=== PATIENT | male | born 1945 | race Caucasian/White ===

== ENCOUNTER 2021-09-23 08:05 | Outpatient (CLI) | payer MEDICARE ==
[2021-09-23 09:44] LABS: Hemoglobin 14.7 g/dL (13.5-17.5); Mean Corpuscular HGB CONC 32.7 g/dL (32.0-36.0); Mean Corpuscular Hemoglobin 29.8 pg (27.0-33.0); Mean Corpuscular Volume 90.9 fl (81.2-95.1); Mean Platelet Volume 9.7 fl (7.4-10.4); Platelet Count 182 10x3/uL (150-450); RBC Distribution Width 12.7 % (11.5-14.5); Red Blood Cell (RBC) Count 4.94 10x6/uL (4.32-5.72); White Blood Cell (WBC) Count 8.8 10x3/uL (3.5-10.5)
[2021-09-23 10:05] LABS: Anion Gap 13 mmol/L (10-20); BUN (Urea Nitrogen) 20 mg/dL (8.4-25.7); Calc. Creatinine Clearance 0 mL/min (70-130); Calcium 9.5 mg/dL (7.8-10.44); Carbon Dioxide 26 mmol/L (23-31); Chloride 107 mmol/L (98-107); Glucose 92 mg/dL (83-110); Potassium 4.9 mmol/L (3.5-5.1); Sodium 141 mmol/L (136-145)
[2021-09-23 10:11] LABS: PTT 26.2 sec (22.0-33.0); Prothrombin Time 10.5 sec (9.5-12.1)
== END 2021-09-23 08:06 | disposition home or self-care (01) ==
LOC: LABBT 08:05
PROVIDERS: ATTEND Urology
DX: Z01.812 Encounter for preprocedural laboratory examination (principal); Z20.822 Contact with and (suspected) exposure to COVID-19
CPT/HCPCS: 80048; 85027; 85610; 85730; 87086; U0003; U0005

== ENCOUNTER 2021-09-28 09:41 | Day surgery (SDC) | payer MEDICARE ==
[2021-09-24 15:27] VITALS: BMI 24.1
[2021-09-28] MEDS ORDERED: Iopamidol 30 ML ONE (13:07)
[2021-09-28] MEDS ORDERED: Sodium Chloride 0.9% 100 ML ONE (13:18)
[2021-09-28] MEDS ORDERED: fentaNYL Citrate/PF 100 MCG/2 ML SYRINGE ONE (13:18)
[2021-09-28] MEDS ORDERED: CEFAZOLIN 2 GM VIAL ONE (13:18)
[2021-09-28] MEDS ORDERED: PROPOFOL 200 MG/20 ML VIAL ONE (13:29)
[2021-09-28] MEDS ORDERED: Lidocaine 1% PF 5 ML VIAL ONE (13:29)
[2021-09-28] MEDS ORDERED: Ondansetron PF 4 MG/2 ML Vial ONE (13:29)
== END 2021-09-28 16:54 | disposition home or self-care (01) ==
LOC: SDC 09:41
PROVIDERS: ATTEND Urology
PROC: 0TCB8ZZ Extirpation of Matter from Bladder, Via Natural or Artificial Opening Endoscopic (ICD-10-PCS; principal; 2021-09-28)
PROC: BT14ZZZ Fluoroscopy of Kidneys, Ureters and Bladder (ICD-10-PCS; 2021-09-28)
DX: N21.0 Calculus in bladder (principal); I10 Essential (primary) hypertension; Z85.51 Personal history of malignant neoplasm of bladder; Z79.82 Long term (current) use of aspirin; Z79.899 Other long term (current) drug therapy
CPT/HCPCS: 74420; 82365; 88300; J0690; J2405; J2704; J3490; Q9967

== ENCOUNTER 2022-02-04 09:05 | Outpatient (CLI) | payer MEDICARE ==
[2022-02-04 10:33] LABS: Mean Corpuscular HGB CONC 33.4 g/dL (32.0-36.0); Mean Corpuscular Hemoglobin 30.4 pg (27.0-33.0); Mean Corpuscular Volume 91.1 fl (81.2-95.1); Mean Platelet Volume 10.4 fl (7.4-10.4); Platelet Count 177 10x3/uL (150-450); RBC Distribution Width 12.6 % (11.5-14.5); White Blood Cell (WBC) Count 15.4 10x3/uL (3.5-10.5)
== END 2022-02-04 09:06 | disposition home or self-care (01) ==
LOC: LABBT 09:05
PROVIDERS: ATTEND Urology
DX: Z01.812 Encounter for preprocedural laboratory examination (principal); N20.1 Calculus of ureter
CPT/HCPCS: 85027; 87086

== ENCOUNTER 2022-02-09 05:33 | Day surgery (SDC) | payer MEDICARE ==
[2022-02-08 08:42] VITALS: BMI 24.4
[2022-02-09] MEDS ORDERED: Iopamidol 30 ML ONE (06:41)
[2022-02-09] MEDS ORDERED: fentaNYL PF 100 MCG/2 ML SYRINGE ONE (06:57)
[2022-02-09 07:23] LABS: #Eosinphils 0.3 thou/uL (0.0-0.7); #Lymphocytes 1.1 thou/uL (1.20-3.40); #Monocytes 0.9 thou/uL (0.11-0.59); #Neutrophils 5.6 thou/uL (1.40-6.50); %Basophils 0.5 % (0.0-1.0); %Eosinophils 3.5 % (0.0-10.0); %Lymphocytes 13.8 % (21.0-51.0); %Monocytes 11.8 % (0.0-10.0); %Neutrophils 70.5 % (42.0-75.0); Hemoglobin 13.3 g/dL (14.0-18.0); Mean Corpuscular HGB CONC 32.9 g/dL (32.0-36.0); Mean Corpuscular Hemoglobin 31.3 pg (27.0-31.0); Mean Corpuscular Volume 95.3 fl (78.0-98.0); Mean Platelet Volume 7.4 fL (7.4-10.4); Platelet Count 205 thou/uL (130-400); RBC Distribution Width 11.4 % (11.5-14.5); Red Blood Cell (RBC) Count 4.25 mill/uL (4.70-6.10)
[2022-02-09] MEDS ORDERED: Sodium Chloride 0.9% 100 ML ONE (07:27)
[2022-02-09] MEDS ORDERED: CEFAZOLIN 2 GM VIAL ONE (07:27)
[2022-02-09] MEDS ORDERED: NEOSTIGMINE 3 MG/3 ML SYR 3 MG/3 ML SYRINGE ONE (07:37)
[2022-02-09] MEDS ORDERED: PROPOFOL 200 MG/20 ML VIAL ONE (07:37)
[2022-02-09] MEDS ORDERED: Glycopyrrolate 0.2 MG/ML 5 ML SYRINGE ONE (07:37)
[2022-02-09] MEDS ORDERED: Ondansetron PF 4 MG/2 ML Vial ONE (07:37)
[2022-02-09] MEDS ORDERED: Esmolol 100 MG/10 ML VIAL ONE (07:37)
[2022-02-09] MEDS ORDERED: ePHEDrine 50 MG/ML VIAL ONE (07:37)
[2022-02-09] MEDS ORDERED: Rocuronium Bromide 10 MG/ML (10ML VIAL) ONE (07:37)
[2022-02-09] MEDS ORDERED: SUGAMMADEX SODIUM 200 MG/2 ML VIAL ONE (08:33)
[2022-02-09] MEDS ORDERED: FENTANYL 50 MCG/ML 1 ML VIAL ONE (08:43)
[2022-02-09] MEDS ORDERED: Tamsulosin HCl 0.4 MG CAP ONE (11:40)
== END 2022-02-09 13:30 | disposition home or self-care (01) ==
LOC: SDC 05:33
PROVIDERS: ATTEND Urology
PROC: 0TP98DZ Removal of Intraluminal Device from Ureter, Via Natural or Artificial Opening Endoscopic (ICD-10-PCS; principal; 2022-02-09)
PROC: 0TC68ZZ Extirpation of Matter from Right Ureter, Via Natural or Artificial Opening Endoscopic (ICD-10-PCS; 2022-02-09)
PROC: 0T768DZ Dilation of Right Ureter with Intraluminal Device, Via Natural or Artificial Opening Endoscopic (ICD-10-PCS; 2022-02-09)
DX: N20.1 Calculus of ureter (principal); I10 Essential (primary) hypertension; E78.5 Hyperlipidemia, unspecified; N40.0 Benign prostatic hyperplasia without lower urinary tract symptoms; Z87.440 Personal history of urinary (tract) infections; Z79.2 Long term (current) use of antibiotics; Z79.899 Other long term (current) drug therapy; Z95.5 Presence of coronary angioplasty implant and graft
CPT/HCPCS: 52356; 74420; 82365; 85025; J3010; 36415; 88300; J2405; J2704; J3490; Q9967

== ENCOUNTER 2023-09-21 08:50 | Outpatient (CLI) | payer MEDICARE ==
[2023-09-21 11:18] LABS: Hematocrit 45.7 % (38.8-50.0); Hemoglobin 15.6 g/dL (13.5-17.5); Mean Corpuscular HGB CONC 34.1 g/dL (32.0-36.0); Mean Corpuscular Hemoglobin 31.5 pg (27.0-33.0); Mean Corpuscular Volume 92.3 fL (81.2-95.1); Mean Platelet Volume 10.1 fL (7.4-10.4); Platelet Count 145 10x3/uL (150-450); RBC Distribution Width 12.7 % (11.5-14.5); Red Blood Cell (RBC) Count 4.95 10x6/uL (4.32-5.72); White Blood Cell (WBC) Count 7.9 10x3/uL (3.5-10.5)
[2023-09-21 11:19] LABS: Anion Gap 15 mmol/L (10-20); BUN (Urea Nitrogen) 20 mg/dL (8.4-25.7); Calc. Creatinine Clearance 0 mL/min (70-130); Calcium 9.6 mg/dL (7.8-10.44); Carbon Dioxide 21 mmol/L (23-31); Chloride 107 mmol/L (98-107); Estimated GFR 62; Glucose 95 mg/dL (83-110); Potassium 4.1 mmol/L (3.5-5.1); Sodium 139 mmol/L (136-145)
[2023-09-21 11:26] LABS: PTT 25.3 sec (22.0-33.0); Prothrombin Time 11.1 sec (9.5-12.1)
== END 2023-09-21 08:51 | disposition home or self-care (01) ==
LOC: LABBT 08:50
PROVIDERS: ATTEND Urology
DX: Z01.818 Encounter for other preprocedural examination (principal); N21.0 Calculus in bladder; Z85.51 Personal history of malignant neoplasm of bladder
CPT/HCPCS: 80048; 85027; 85610; 85730; 87086; 93005; 93010